=== PATIENT | male | born 1975 | race Caucasian/White ===

== ENCOUNTER 2020-02-08 12:43 | Outpatient (CLI) | payer BC ==
--- NOTE | 2020-02-08 14:38 | MRI ---
EXAM: MRI left shoulder PROVIDED CLINICAL HISTORY: Pain COMPARISON: None FINDINGS: The components of the rotator cuff appear intact. The long head biceps tendon appears intact and norm ally located. The amount of fluid within the glenohumeral joint appears physiologic. The glenoid labrum and glenohu meral articular cartilage are suboptimally evaluated in the absence of joint distention, but appear grossly normal. Signal alteration involving the posterior labrum on the axial images is felt vascular in nature. The amount of fluid within the subacromial subdeltoid bursa appears physiologic. Acromioclavicular milly int osteoarthrosis is demonstrated with mild mass effect upon the subjacent supraspinatus. No focal concerning regional marrow or muscular signal abnormality apparent. IMPRESSION: 1. No evidence for rotator cuff tear. 2. Acromioclavicular joint osteoarthrosis.
--- NOTE | 2020-02-08 15:13 | MRI ---
MRI CERVICAL SPINE WITHOUT CONTRAST: HISTORY: Cervical radiculopathy. COMPARISON: None. FINDINGS: Straightening of normal cervical lordosis is presumed to be positional. No significant STIR hyperint ensity to suggest ligamentous injury or vertebral body edema. Appropriate T1 marrow signal intensity of the cervical vertebra. Vertebral body heights are maintained. No fracture Because brain parenchyma, cervicomedullary junction, cervical cord and the upper thoracic cord have a normal size and signal intensity. C2-C3: Small left and right paracentral disc herniation. No significant central canal stenosis. Paten t bilateral neural foramina. C3-C4: Broad-based disc-osteophyte complex. There is a right paracentral component with mass effect u claudia the right hemicord. Mild central canal stenosis. Patent bilateral neural foramina. C4-C5: Broad-based disc-osteophyte complex abuts the thecal sac. Mild central canal stenosis. Mild ri ght foraminal narrowing due to uncovertebral hypertrophy. Patent left neural foramen. C5-C6: Broad-based disc-osteophyte complex abuts the thecal sac. Mild to moderate central canal steno sis. Moderate to severe right and moderate left neural foraminal narrowing. C6-C7: Broad-based disc-osteophyte complex abuts the thecal sac. Moderate central canal stenosis. Mod erate bilateral foraminal narrowing. C7-T1: No significant central canal stenosis or significant neural foraminal narrowing. IMPRESSION: Multilevel degenerative changes of the cervical spine as described above. Transcribed Date/Time: 02/08/2020 3:21 PM
== END 2020-02-08 12:44 | disposition home or self-care (01) ==
LOC: BICMRI 12:43
PROVIDERS: ATTEND Orthopaedic Surgery
DX: S43.402A Unspecified sprain of left shoulder joint, initial encounter (principal); M47.22 Other spondylosis with radiculopathy, cervical region; M19.012 Primary osteoarthritis, left shoulder
CPT/HCPCS: 72141